=== PATIENT | male | born 1995 | race African-American/Black ===

== ENCOUNTER 2020-02-12 13:41 | Emergency (ER) | payer MEDICAID, OTHER ==
[~2020-02-12] VITALS: Ht 170.2 cm; Wt 68.0 kg
[~2020-02-12 13:41] MED LIST: AMOX250S70; IBUP50DR9; KEPP500
[2020-02-12] MEDS ORDERED: HYDROCODONE/ACETAMINOPHEN 5/325MG TABLET PO ONE (14:15)
[2020-02-12 16:05] VITALS: BP 128/68
== END 2020-02-12 16:08 | disposition home or self-care (01) ==
LOC: ER 13:41
DX: S82.141A Displaced bicondylar fracture of right tibia, initial encounter for closed fracture (principal); G40.909 Epilepsy, unspecified, not intractable, without status epilepticus; V43.62XA Car passenger injured in collision with other type car in traffic accident, initial encounter; Y93.89 Activity, other specified; Y92.488 Other paved roadways as the place of occurrence of the external cause
CPT/HCPCS: 73562; 73590; 99284